=== PATIENT | female | born 1980 | race Caucasian/White ===

== ENCOUNTER 2017-10-27 14:19 | Observation (INO) | payer BC ==
[2017-10-27 14:33] VITALS: RESP 16
[2017-10-27] MEDS ORDERED: ASPIRIN 81 MG PO STA (14:39)
[2017-10-27] MEDS ORDERED: NITROGLYCERIN SL TABS 0.4 MG TAB SUBLINGUAL STA ×3 (14:39)
--- NOTE | 2017-10-27 14:45 | ED ---
General Adult HPI - General Chief complaint: Chest Pain Stated complaint: Chest Pain Time Seen by Provider: 10/27/17 14:31 Source: patient, EMS, RN notes reviewed Mode of arrival: EMS Limitations: no limitations - History of Present Illness Initial comments: Patient is a pleasant 37-year-old female presenting to the emergency Department with complaints of chest discomfort. Onset was around an hour or so ago while doing dishes. Discomfort is tight or pressure. Discomfort is sternal and radiates to both sides as well as the back. Patient does have associated dyspnea. Discomfort does increase with deep breaths and possibly position changes. No nausea or diaphoresis. No history of similar symptoms previously. - Related Data Allergies Allergy/AdvReac Type Severity Reaction Status Date / Time tramadol Allergy Swelling Verified 10/27/17 14:28 Review of Systems ROS Statement: Those systems with pertinent positive or pertinent negative responses have been documented in the HPI. ROS Other: All systems not noted in ROS Statement are negative. Constitutional: Denies: fever Eyes: Denies: eye pain ENT: Denies: ear pain Respiratory: Reports: dyspnea Cardiovascular: Reports: chest pain Endocrine: Denies: fatigue Gastrointestinal: Denies: abdominal pain, nausea Genitourinary: Denies: dysuria Skin: Denies: rash Past Medical History Past Medical History: Thyroid Disorder History of Any Multi-Drug Resistant Organisms: None Reported Past Surgical History: No Surgical Hx Reported Past Psychological History: No Psychological Hx Reported Smoking Status: Never smoker Past Alcohol Use History: None Reported Past Drug Use History: None Reported General Exam Limitations: no limitations General appearance: alert, in no apparent distress Head exam: Present: atraumatic Eye exam: Present: normal appearance, PERRL ENT exam: Present: normal oropharynx Neck exam: Present: normal inspection Respiratory exam: Present: normal lung sounds bilaterally, chest wall tenderness (Mild tenderness to the sternal) Cardiovascular Exam: Present: regular rate, normal rhythm Expanded Peripheral pulses: 2+: Radial (R), Radial (L), Dorsalis Pedis (R), Dorsalis Pedis (L) GI/Abdominal exam: Present: soft. Absent: distended, tenderness Extremities exam: Present: normal inspection. Absent: pedal edema, calf tenderness Back exam: Present: tenderness (Mild diffuse tenderness) Neurological exam: Present: alert Psychiatric exam: Present: normal mood Skin exam: Present: normal color Course Vital Signs 10/27/17 10/27/17 10/27/17 14:24 14:32 14:48 Temperature 98.7 F Pulse Rate 90 80 90 Respiratory 18 16 16 Rate Blood Pressure 199/92 171/89 156/99 O2 Sat by Pulse 98 97 Oximetry 10/27/17 14:55 Temperature Pulse Rate 82 Respiratory 16 Rate Blood Pressure 163/101 O2 Sat by Pulse 98 Oximetry EKG Findings - EKG Comments: EKG Findings:: Normal sinus rhythm 78. ME 172. QRS 86. QT 36. QTc 440. Left axis. LVH criteria. No acute ST change. Medical Decision Making - Medical Decision Making Patient reevaluated and resting comfortably in bed. Symptoms have improved. Patient is unclear if symptoms improved from nitroglycerin or not. Patient is updated on results and plan. Case was discussed in detail with Dr. Glez, covering for Dr. garrett, who will admit for Dr. Ansari. - Lab Data Result diagrams: 10/27/17 14:27 10/27/17 14:27 Lab Results 10/27/17 10/27/17 10/27/17 Range/Units 14:27 14:27 14:27 WBC 10.1 (3.8-10.6) k/uL RBC 4.40 (3.80-5.40) m/uL Hgb 13.2 (11.4-16.0) gm/dL Hct 38.2 (34.0-46.0) % MCV 86.8 (80.0-100.0) fL MCH 29.9 (25.0-35.0) pg MCHC 34.5 (31.0-37.0) g/dL RDW 13.6 (11.5-15.5) % Plt Count 245 (150-450) k/uL Neutrophils % 63 % Lymphocytes % 30 % Monocytes % 4 % Eosinophils % 1 % Basophils % 0 % Neutrophils # 6.3 (1.3-7.7) k/uL Lymphocytes # 3.1 (1.0-4.8) k/uL Monocytes # 0.4 (0-1.0) k/uL Eosinophils # 0.1 (0-0.7) k/uL Basophils # 0.0 (0-0.2) k/uL PT (9.0-12.0) sec INR (<1.2) APTT (22.0-30.0) sec D-Dimer (<0.60) mg/L FEU Sodium 141 (137-145) mmol/L Potassium 3.6 (3.5-5.1) mmol/L Chloride 104 (98-107) mmol/L Carbon Dioxide 22 (22-30) mmol/L Anion Gap 15 mmol/L BUN 11 (7-17) mg/dL Creatinine 0.80 (0.52-1.04) mg/dL Est GFR (CKD-EPI)AfAm >90 (>60 ml/min/1.73 sqM) Est GFR (CKD-EPI)NonAf >90 (>60 ml/min/1.73 sqM) Glucose 109 H (74-99) mg/dL Calcium 9.3 (8.4-10.2) mg/dL Magnesium 1.9 (1.6-2.3) mg/dL Total Bilirubin 0.6 (0.2-1.3) mg/dL AST 51 H (14-36) U/L ALT 42 (9-52) U/L Alkaline Phosphatase 88 (38-126) U/L Total Creatine Kinase 64 (30-135) U/L CK-MB (CK-2) 0.2 (0.0-2.4) ng/mL CK-MB (CK-2) Rel Index 0.3 Troponin I <0.012 (0.000-0.034) ng/mL Total Protein 6.7 (6.3-8.2) g/dL Albumin 3.9 (3.5-5.0) g/dL 10/27/17 Range/Units 14:27 WBC (3.8-10.6) k/uL RBC (3.80-5.40) m/uL Hgb (11.4-16.0) gm/dL Hct (34.0-46.0) % MCV (80.0-100.0) fL MCH (25.0-35.0) pg MCHC (31.0-37.0) g/dL RDW (11.5-15.5) % Plt Count (150-450) k/uL Neutrophils % % Lymphocytes % % Monocytes % % Eosinophils % % Basophils % % Neutrophils # (1.3-7.7) k/uL Lymphocytes # (1.0-4.8) k/uL Monocytes # (0-1.0) k/uL Eosinophils # (0-0.7) k/uL Basophils # (0-0.2) k/uL PT 9.9 (9.0-12.0) sec INR 1.0 (<1.2) APTT 23.3 (22.0-30.0) sec D-Dimer 0.59 (<0.60) mg/L FEU Sodium (137-145) mmol/L Potassium (3.5-5.1) mmol/L Chloride (98-107) mmol/L Carbon Dioxide (22-30) mmol/L Anion Gap mmol/L BUN (7-17) mg/dL Creatinine (0.52-1.04) mg/dL Est GFR (CKD-EPI)AfAm (>60 ml/min/1.73 sqM) Est GFR (CKD-EPI)NonAf (>60 ml/min/1.73 sqM) Glucose (74-99) mg/dL Calcium (8.4-10.2) mg/dL Magnesium (1.6-2.3) mg/dL Total Bilirubin (0.2-1.3) mg/dL AST (14-36) U/L ALT (9-52) U/L Alkaline Phosphatase (38-126) U/L Total Creatine Kinase (30-135) U/L CK-MB (CK-2) (0.0-2.4) ng/mL CK-MB (CK-2) Rel Index Troponin I (0.000-0.034) ng/mL Total Protein (6.3-8.2) g/dL Albumin (3.5-5.0) g/dL - Radiology Data Radiology results: image reviewed (X-ray shows no acute process) Disposition Clinical Impression: Chest pain Disposition: ADMITTED IP TO THIS HOSP Is patient prescribed a controlled substance at d/c from ED?: No Referrals: Brooke Ansari MD [Primary Care Provider] - 1-2 days Decision Time: 15:55
[2017-10-27 15:03] LABS: Basophils % (A) 0 %; Eosinophils # (A) 0.1 k/uL (0-0.7); Eosinophils % (A) 1 %; HCT 38.2 % (34.0-46.0); HGB 13.2 gm/dL (11.4-16.0); Lymphocytes # (A) 3.1 k/uL (1.0-4.8); Lymphocytes % (A) 30 %; MCH 29.9 pg (25.0-35.0); MCHC 34.5 g/dL (31.0-37.0); MCV 86.8 fL (80.0-100.0); Mean Platelet Volume 7.4; Monocytes # (A) 0.4 k/uL (0-1.0); Monocytes % (A) 4 %; Neutrophils # (A) 6.3 k/uL (1.3-7.7); Neutrophils % (A) 63 %; Platelet Count 245 k/uL (150-450); RDW 13.6 % (11.5-15.5); WBC 10.1 k/uL (3.8-10.6)
--- NOTE | 2017-10-27 15:10 | XR ---
EXAMINATION TYPE: XR chest 2V DATE OF EXAM: 10/27/2017 COMPARISON: NONE HISTORY: Substernal chest pain, diaphoresis, shortness of breath and pain with inspiration. TECHNIQUE: Frontal and lateral views of the chest are obtained. FINDINGS: Pulmonary vasculature is accentuated by low lung volumes as is the cardiomediastinal silho uette. There is no focal air space opacity, pleural effusion, or pneumothorax seen. The cardiac silh ouette size is within normal limits. The osseous structures are intact. IMPRESSION: No acute cardiopulmonary process.
[2017-10-27 15:18] LABS: D-Dimer 0.59 mg/L FEU (<0.60); Partial Thromboplastin Time 23.3 sec (22.0-30.0); Prothrombin Time 9.9 sec (9.0-12.0)
[2017-10-27 15:20] LABS: ALT 42 U/L (9-52); AST 51 U/L (14-36); Albumin 3.9 g/dL (3.5-5.0); Alkaline Phosphatase 88 U/L (38-126); Anion Gap 15 mmol/L; Blood Urea Nitrogen 11 mg/dL (7-17); Calcium 9.3 mg/dL (8.4-10.2); Carbon Dioxide 22 mmol/L (22-30); Chloride 104 mmol/L (98-107); Glucose 109 mg/dL (74-99); Magnesium 1.9 mg/dL (1.6-2.3); Potassium 3.6 mmol/L (3.5-5.1); Sodium 141 mmol/L (137-145); Total Bilirubin 0.6 mg/dL (0.2-1.3); Total Protein 6.7 g/dL (6.3-8.2)
[2017-10-27 15:24] LABS: Creatine Kinase 64 U/L (30-135)
[2017-10-27 15:37] LABS: Creatine Kinase MB 0.2 ng/mL (0.0-2.4); Troponin I <0.012 ng/mL (0.000-0.034)
[2017-10-27] MEDS ORDERED: NITROGLYCERIN SL TABS 0.4 MG TAB SUBLINGUAL PRN (15:56)
[2017-10-27 16:51] VITALS: BMI 41.2
[2017-10-27] MEDS ORDERED: ACETAMINOPHEN TAB 325 MG TAB PO PRN (17:27)
[2017-10-27] MEDS: NITROGLYCERIN OINT 1 INCH/GM PACKET TOPICAL SCH ×2 (17:39→20:30)
[2017-10-27] MEDS: CALCIUM CARBONATE 500 MG CHEWABLE PO PRN (18:42)
[2017-10-27] MEDS: IBUPROFEN 800 MG TAB PO SCH ×2 (18:44→23:11)
[2017-10-27] MEDS ORDERED: cloNIDine HCL 0.1 MG TAB PO PRN (19:09)
[2017-10-27 20:28] LABS: Creatine Kinase 57 U/L (30-135)
[2017-10-27 20:41] LABS: Creatine Kinase MB 0.3 ng/mL (0.0-2.4); Troponin I <0.012 ng/mL (0.000-0.034)
--- NOTE | 2017-10-27 21:51 | HP ---
HISTORY AND PHYSICAL HISTORY OF PRESENT ILLNESS: This 37-year-old woman with a past medical history of hypothyroidism, history of plantar fasciitis, was being followed by Dr. Ansari in the outpatient setting, was complaining of chest pain. The chest pain started while the patient was doing dishes. Pain was felt in the anterior part of the chest which was a tightness and radiated to both sides as well as to the back and the patient came to [facility] and admitted for further evaluation and treatment. Initial troponins are negative and the EKG initially showed normal sinus rhythm. No acute abnormalities noted. There was no history of any fever, rigors. No history of headache, loss of consciousness, seizures. PAST MEDICAL HISTORY: Hypothyroidism, plantar fasciitis. MEDICATIONS PRIOR TO ADMISSION: 1. Motrin 800 mg p.o. t.i.d. 2. Vitamin D3 2000 daily. 3. Synthroid 112 mcg p.o. daily. ALLERGIES: TRAMADOL. FAMILY HISTORY: Hypertension, IBS. SOCIAL HISTORY: No history of smoking. No history of alcohol intake. REVIEW OF SYSTEMS: ENT: No diminished hearing, diminished vision. CARDIOVASCULAR: As mentioned earlier. RESPIRATORY: No cough or hemoptysis. GI: No nausea or vomiting. : No dysuria. NERVOUS: No numbness or weakness. ALLERGY/IMMUNOLOGY: No asthma or hay fever. MUSCULOSKELETAL: As mentioned earlier. HEMATOLOGY/ONCOLOGY: No history of anemia. ENDOCRINE: Hypothyroidism. CONSTITUTIONAL: As mentioned earlier. DERMATOLOGY: Negative. RHEUMATOLOGY: Negative. PSYCHIATRY: As mentioned earlier. PHYSICAL EXAMINATION: The patient alert and oriented x3. Pulse 105, blood pressure 196/110, respirations 16, temperature 98 degrees, pulse ox 97% on room air. HEENT: Conjunctivae normal. Oral mucosa moist. NECK: No jugular venous distention. No carotid bruits. No lymph node enlargement. CARDIOVASCULAR: S1, S2 muffled. RESPIRATORY: Breath sounds diminished in the bases. No rhonchi. No crackles. ABDOMEN: Soft, nontender. No mass palpable. LEGS: No edema. No swelling. NERVOUS SYSTEM: Higher functions as mentioned earlier. Moves all 4 limbs. No focal motor or sensory deficits. LYMPHATIC: No lymphadenopathy in neck or axillae. SKIN: No ulcer, rash or bleeding. LABS: At this time show CBC within normal limits and glucose 109 and AST is 51. ASSESSMENT: 1. Chest pain, possible unstable angina. 2. Hypertension. 3. Hypothyroidism. 4. Plantar fasciitis. 5. Obesity with a body mass of 41.2. RECOMMENDATIONS AND DISCUSSION: In this 37-year-old woman who presented with multiple complex medical issues, will monitor the patient closely, continue the current medical management and symptomatic treatment. Otherwise, I would recommend rule out myocardial infarction, possible stress test, Cardiology consultation, Lopressor and clonidine p.r.n. Guarded prognosis because of multiple complex medical issues. Further recommendations to follow. MMODL / IJN: [id number] /
[2017-10-27] MEDS: METOPROLOL TARTRATE 12.5 MG TAB PO SCH (22:15)
[2017-10-27] MEDS: MORPHINE SULFATE 4 MG/ML SYRINGE IVP PRN (22:21)
[2017-10-28 02:49] LABS: Cholesterol 220 mg/dL (<200); HDL Cholesterol 43 mg/dL (40-60); LDL Cholesterol,Calculated 145 mg/dL (0-99); Triglycerides 162 mg/dL (<150)
[2017-10-28 03:07] LABS: Creatine Kinase 46 U/L (30-135)
[2017-10-28 03:19] LABS: Creatine Kinase MB 0.2 ng/mL (0.0-2.4); Troponin I <0.012 ng/mL (0.000-0.034)
[2017-10-28] MEDS: IBUPROFEN 800 MG TAB PO SCH ×2 (05:56→17:49)
[2017-10-28] MEDS ORDERED: LEVOTHYROXINE 112 MCG TAB PO SCH (06:30)
[2017-10-28] MEDS ORDERED: DOBUTamine DRIP for NUC MED 500 MG in DEXTROSE/WATER 1 250ML.BAG IV ONE (08:15)
--- NOTE | 2017-10-28 08:28 | CONS ---
CONSULTATION CHIEF COMPLAINT: Chest pain. 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 The pain radiated to her back. She became somewhat pale and diaphoretic. It was mild to moderate intensity pain and had gradually subsided on its own. She comes to the ER and is admitted to hospital. Her EKG reveals sinus rhythm with nonspecific ST-T wave changes. She has had 3 sets of troponins that are all within normal limits. Her LDL cholesterol is 145. Her D-dimer is 0.59. Hemoglobin is normal at 13.2. PAST MEDICAL HISTORY: Past medical history is significant for hypothyroidism. It is negative for hypertension, diabetes, dyslipidemia/ MEDICATIONS: Synthroid. FAMILY HISTORY: Family history is significant for hypertension. SOCIAL HISTORY: Social history is negative for smoking, EtOH abuse, or drug abuse. REVIEW OF SYSTEMS: HEENT is unremarkable. CARDIAC: As described above. RESPIRATORY: Negative. GI: Negative. GENITOURINARY: Negative. ALLERGY/IMMUNOLOGY: Negative. SKIN: Negative. MUSCULOSKELETAL: Significant for arthritis. PSYCHOSOCIAL: Negative. ENDOCRINE: Negative. HEMATOLOGICAL: Negative. DERM: Negative. CONSTITUTIONAL: Negative. ONCOLOGICAL: Negative. STEAM ROLLER OPERATOR: Negative. Rest of the system review is not relevant. PHYSICAL EXAMINATION: On exam, comfortable at rest. Vital signs are stable. There is no jugular venous distention. Carotid upstroke is normal. There is no bruit. Chest exam reveals good air entry bilaterally. Heart exam reveals first and second heart sounds. No gallop, no murmur, no rub. Abdomen is soft, nontender. Exam of extremities did not reveal any edema. Peripheral pulses are felt. STEAM ROLLER OPERATOR exam did not reveal focal neurological deficits. EKG does not reveal acute ischemic changes. Cardiac enzymes have been negative. ASSESSMENT: 1. Precordial chest pain. 2. Hypothyroidism. 3. Hypertension. PLAN: The patient has plantar fasciitis. I am going to obtain a dobutamine echo on her. If stress test is abnormal, she will undergo cardiac catheterization. If there is a problem on stress test, we will consider further evaluation. The patient is not able to walk on the treadmill because of plantar fasciitis and the patient does not have any significant coronary risk factors. MMODL / IJN: [id number] /
[2017-10-28] MEDS ORDERED: CHOLECALCIFEROL 1,000 UNIT TAB PO SCH (09:00)
[2017-10-28] MEDS ORDERED: ASPIRIN 325 MG TAB PO SCH (09:00)
[2017-10-28] MEDS: CALCIUM CARBONATE 500 MG CHEWABLE PO PRN (10:11)
[2017-10-28] MEDS ORDERED: ONDANSETRON 4 MG/2 ML VIAL IVP PRN (11:31)
--- NOTE | 2017-10-28 11:54 | ECHOF ---
Referral Reason:cp MEASUREMENTS -------- HEIGHT: 165.1 cm WEIGHT: 112.0 kg BP: 141/9 RVIDd: 3.1 cm (< 3.3) IVSd: 1.2 cm (0.6 - 1.1) LVIDd: 4.9 cm (3.9 - 5.3) LVPWd: 1.0 cm (0.6 - 1.1) IVSs: 1.6 cm LVIDs: 3.1 cm LVPWs: 1.7 cm LA Diam: 3.9 cm (2.7 - 3.8) LAESV Index (A-L): 25.90 ml/m Ao Diam: 3.0 cm (2.0 - 3.7) AV Cusp: 1.8 cm (1.5 - 2.6) MV EXCURSION: 17.570 mm (> 18.000) MV EF SLOPE: 88 mm/s (70 - 150) EPSS: 0.5 cm MV E Espinoza: 1.12 m/s MV DecT: 204 ms MV A Espinoza: 0.91 m/s MV E/A Ratio: 1.23 AV maxP.79 mmHg AV meanP.49 mmHg RAP: 5.00 mmHg RVSP: 24.09 mmHg FINDINGS -------- Sinus rhythm. This was a technically good study. The left ventricular size is normal. There is borderline concentric left ventricular hypertrophy. Overall left ventricular systolic function is normal with, an EF between 60 - 65 %. The right ventricle is normal in size. Normal LA size by volume 22+/-6 ml/m2. The right atrium is normal in size. Aortic valve is trileaflet and is mildly thickened. The aortic valve is bicuspid. Mild mitral regurgitation is present. Trace tricuspid regurgitation present. Right ventricular systolic pressure is normal at < 35 mmHg. Trace/mild (physiologic) pulmonic regurgitation. The aortic root size is normal. Normal inferior vena cava with normal inspiratory collapse consistent with estimated right atrial pre ssure of 5 mmHg. There is no pericardial effusion. CONCLUSIONS -------- 1. Sinus rhythm. 2. This was a technically good study. 3. The left ventricular size is normal. 4. There is borderline concentric left ventricular hypertrophy. 5. Overall left ventricular systolic function is normal with, an EF between 60 - 65 %. 6. The right ventricle is normal in size. 7. Normal LA size by volume 22+/-6 ml/m2. 8. The right atrium is normal in size. 9. Aortic valve is trileaflet and is mildly thickened. 10. The aortic valve is bicuspid. 11. Mild mitral regurgitation is present. 12. Trace tricuspid regurgitation present. 13. Right ventricular systolic pressure is normal at < 35 mmHg. 14. Trace/mild (physiologic) pulmonic regurgitation. 15. The aortic root size is normal. 16. Normal inferior vena cava with normal inspiratory collapse consistent with estimated right atrial pressure of 5 mmHg. 17. There is no pericardial effusion. CHEESE BLENDER: Shira Hammer RDCS
[2017-10-28] MEDS: NITROGLYCERIN OINT 1 INCH/GM PACKET TOPICAL SCH ×2 (12:02→17:59)
[2017-10-28] MEDS: METOPROLOL TARTRATE 12.5 MG TAB PO SCH (12:06)
--- NOTE | 2017-10-28 12:49 | ECHOS ---
STRESS ECHOCARDIOGRAM INDICATIONS: Chest pain. MEDICATIONS: Synthroid, Vitamin D, Multivitamin BASELINE HEART RATE: 79 BASELINE BLOOD PRESSURE: 144/82 MAXIMUM HEART RATE: 155 MAXIMUM BLOOD PRESSURE: 217/109 85% MPHR: 155 100% MPHR: 182 MAXIMUM STAGE REACHED: II TOTAL EXERCISE TIME: 7:00 CLINICAL INFORMATION: Chest pain. Baseline EKG shows sinus rhythm, normal axis, normal intervals. The patient was given intravenous dobutamine over a period of 7 minutes as per protocol. Did not have chest pain or diagnostic ST-segment depression, attained 85% of predicted maximal heart rate. Baseline echo shows normal left ventricular size, wall motion and systolic function. There is normal hyperdynamic response of all segments of myocardium noted conclusions. CONCLUSION: 1. Negative stress test by EKG criteria. 2. Negative dobutamine echo. MMODL / IJN: [id number] /
[2017-10-28] MEDS ORDERED: LISINOPRIL 5 MG TAB PO SCH (14:00)
[2017-10-28] MEDS: MORPHINE SULFATE 4 MG/ML SYRINGE IVP PRN (14:27)
[2017-10-28 16:04] VITALS: PULSE 70; TEMP 98.6
[2017-10-28 16:55] VITALS: BP 139/78
--- NOTE | 2017-10-29 00:15 | DS ---
DISCHARGE SUMMARY FINAL DIAGNOSES: 1. Chest pain, myocardial infarction ruled out, negative stress test, possibly musculoskeletal pain. 2. Hypertension. 3. Hypothyroidism. 5. Hyperlipidemia. 6. Obesity with body mass index 41.2. DISCHARGE DISPOSITION: The patient will be discharged in stable condition with guarded prognosis. HISTORY OF PRESENT ILLNESS: This 37-year-old woman with a past medical history of multiple medical problems presented with chest pain. Myocardial infarction was ruled out. Cardiology performed a cardiac dobutamine stress, which is negative. On exam, vitals are stable. CARDIOVASCULAR: S1, S2 muffled. ABDOMEN: Soft. NERVOUS SYSTEM: No focal deficits. The patient will be discharged in stable condition with guarded prognosis after cardiac clearance. The cholesterol is 220 and LDL 145. I recommend repeat testing after dietary manipulation. DISCHARGE INSTRUCTIONS: 1. Discharge diet is cardiac, low fat, low cholesterol. 2. Follow up with Dr. Ansari to 1-2 days. 3. Follow up with Cardiology as advised. 4. Vitamin D3 2000 daily. 5. Motrin 800 mg p.o. t.i.d. 6. Synthroid 112 mcg p.o. daily. 7. Zestril 5 mg p.o. daily. MMODL / IJN: [id number] / MTDD
[2017-10-29] MEDS ORDERED: ASPIRIN 81 MG PO SCH (09:00)
[2017-10-29] MEDS ORDERED: PANTOPRAZOLE 40 MG/10 ML VIAL IVP SCH (09:00)
== END 2017-10-28 18:02 | disposition home or self-care (01) ==
LOC: EC 14:19 → 3OBS 15:56
PROVIDERS: ADMIT Hospitalist; ATTEND Hospitalist
DX: R07.89 Other chest pain (principal); I10 Essential (primary) hypertension; E78.5 Hyperlipidemia, unspecified; E03.9 Hypothyroidism, unspecified; R06.00 Dyspnea, unspecified; R61 Generalized hyperhidrosis; M72.2 Plantar fascial fibromatosis; E66.9 Obesity, unspecified; Z68.41 Body mass index [BMI] 40.0-44.9, adult; Z88.5 Allergy status to narcotic agent; Z79.1 Long term (current) use of non-steroidal anti-inflammatories (NSAID); Z79.890 Hormone replacement therapy; Z82.49 Family history of ischemic heart disease and other diseases of the circulatory system; Z83.79 Family history of other diseases of the digestive system
CPT/HCPCS: 99285 ×2; 96374; 96376; 36415; 93005; 93306; 93351; 85379; 80061; 80053; 82550 ×2; 82553 ×2; 83735; 84484 ×2; 85025; 85610; 85730; 71046; G0378 ×2; J1250; J2270 ×2

== ENCOUNTER 2017-12-24 09:48 | Day surgery (SDC) | payer BC ==
[2017-12-19 14:10] VITALS: BMI 39.9
[~2017-12-24 09:48] MED LIST: DEXAMETHASONE SOD PHOSPHATE 10 MG/ML 1 ML VIAL IV ONE; HEPARIN SODIUM,PORCINE 5,000 UNIT/ML 1 ML VIAL SQ ONE; HYDROmorphone 0.5 MG/0.5 ML SYRINGE IVP PRN; LACTATED RINGERS 1,000 ML IV SCH; SCOPOLAMINE 1.5MG/72HR PATCH TRANSDERM ONE; ceFAZolin IN SWFI 2 GM/20 ML SYRINGE IVP ONE; fentaNYL (PF) 50 MCG/ML 2 ML AMP IV PRN
[2017-12-24 10:25] VITALS: TEMP 97
[2017-12-24] MEDS ORDERED: LIDOCAINE 1% 20 ML VIAL (10MG/ML) FOR IV START INTRADERMA ONE (10:33)
[2017-12-24] MEDS: ONDANSETRON 4 MG/2 ML VIAL IVP ONE ×2 (10:34→13:00)
--- NOTE | 2017-12-24 10:47 | P.GSHP ---
History of Present Illness H&P Date: 12/24/17 Chief Complaint: Right upper quadrant pain This a 29-year-old female who's had complaints of right quadrant pain. Patient recently found have cholelithiasis. She presents today for laparoscopic cholecystectomy. Past Medical History Past Medical History: Cancer, Hyperlipidemia, Hypertension, Thyroid Disorder Additional Past Medical History / Comment(s): HX OF BASAL CELL SKIN CA, LIBORIO FEET plantar fasciitis; steroid injections in feet History of Any Multi-Drug Resistant Organisms: None Reported Past Surgical History: No Surgical Hx Reported Past Anesthesia/Blood Transfusion Reactions: Previous Problems w/ Anesthesia Additional Past Anesthesia/Blood Transfusion Reaction / Comment(s): EPIDURAL WITH CHILDBIRTH CAUSED LOW B/P Smoking Status: Never smoker - Past Family History Daughter(s) Additional Family Medical History / Comment(s): IBS Father Family Medical History: Hypertension Medications and Allergies Home Medications Medication Instructions Recorded Confirmed Type Cholecalciferol [Vitamin D3] 2,000 unit PO DAILY 10/27/17 12/24/17 History Ibuprofen [Motrin] 800 mg PO TID 10/27/17 12/24/17 History Levothyroxine Sodium [Synthroid] 112 mcg PO QAM 10/27/17 12/24/17 History Hydrochlorothiazide 25 mg PO QAM 12/19/17 12/24/17 History Lisinopril [Prinivil] 10 mg PO QAM 12/19/17 12/24/17 History Metoprolol Tartrate [Lopressor] 50 mg PO HS 12/19/17 12/24/17 History Simvastatin [Zocor] 20 mg PO HS 12/19/17 12/24/17 History Allergies Allergy/AdvReac Type Severity Reaction Status Date / Time tramadol Allergy Swelling Verified 12/24/17 10:25 Surgical - Exam Vital Signs Temp Pulse Resp BP 97 F L 91 16 113/72 12/24/17 10:23 12/24/17 10:23 12/24/17 10:23 12/24/17 10:23 - General well developed, no distress - Eyes PERRL - ENT normal pinna, normal nares - Neck no masses - Respiratory normal expansion - Cardiovascular Rhythm: regular - Abdomen Abdomen: soft, non tender Assessment and Plan Assessment: Right upper quadrant pain Cholelithiasis We'll perform laparoscopic cholecystectomy.
[2017-12-24] MEDS ORDERED: HYDROmorphone (PF) 1 MG/ML ONE (11:04)
[2017-12-24] MEDS ORDERED: ROCURONIUM BROMIDE 10 MG/ML 10 ML VIAL IV ONE (11:04)
[2017-12-24] MEDS ORDERED: GLYCOPYRROLATE 0.2 MG/ML 2 ML VIAL ONE (11:04)
[2017-12-24] MEDS ORDERED: PROPOFOL 10 MG/ML 20 ML VIAL IV ONE (11:04)
[2017-12-24] MEDS ORDERED: LIDOCAINE 1% INJ 10MG/ML (20 ML MDV) ONE (11:04)
[2017-12-24] MEDS ORDERED: MIDAZOLAM 2 MG/2 ML VIAL ONE (11:04)
[2017-12-24] MEDS ORDERED: SUCCINYLCHOLINE CHLORIDE 100 MG/5 ML SYR IV ONE (11:04)
[2017-12-24] MEDS ORDERED: fentaNYL (PF) 50 MCG/ML 2 ML AMP ONE (11:04)
[2017-12-24] MEDS ORDERED: NEOSTIGMINE 1 MG/ML 10 ML VIAL ONE (11:04)
[2017-12-24] MEDS ORDERED: LACTATED RINGERS 1,000 ML IV ONE (11:30)
[2017-12-24] MEDS ORDERED: BUPIVACAIN-EPI 0.5%-1:200,000 30 ML VIAL SQ ONE (11:38)
--- NOTE | 2017-12-24 12:07 | P.OP ---
Date of Procedure: 12/24/17 Preoperative Diagnosis: Cholelithiasis Cholecystitis Postoperative Diagnosis: Cholelithiasis Cholecystitis Procedure(s) Performed: Endoscopic cholecystectomy Anesthesia: DEQUAN Surgeon: Jordy Zhang Estimated Blood Loss (ml): 5 Pathology: other (Gallbladder) Condition: stable Disposition: PACU Description of Procedure: The patient was placed on the operating table. The patient received a general endotracheal tube anesthesia. The patients abdomen was prepped and draped in the usual sterile fashion. Through an infraumbilical stab incision, the fascia of the anterior abdominal wall was grasped with a pair of Kochers and then the Veress needle was placed in the peritoneal cavity. Position of the Veress needle was confirmed with positive drop test. The abdomen was then insufflated. After adequate insufflation, the 10 mm trocar was placed in the peritoneal cavity. Following this the laparoscope was placed in the peritoneal cavity. The patient was placed in the head-up, right side up position and then a 5 mm trocar was placed in the right lateral and right subcostal position under direct visualization. A 8 mm trocar was placed in the epigastric position. The gallbladder was grasped in the fundus and infundibulum. Traction on the gallbladder was placed in the lateral and the cephalad positions. The triangle of Calot was visualized.. The cystic duct was bluntly dissected until the union of the cystic duct and common bile duct was seen. The cystic duct was then divided and sealed with the Harmonic scissors. A PDS Endoloop was then placed throughout the cystic duct stump. The cystic artery divided and sealed with the Harmonic scissors. The gallbladder was then removed from the liver bed using Harmonic scissors. The gallbladder was then extracted through the epigastric port site. Operative field was checked for any bleeding spots and Harmonic scissors was used to coagulate the liver bed. The abdomen was irrigated. The trocars were removed. The skin was closed using interrupted 3-0 Vicryl suture. Dermabond dressing were applied. The patient tolerated the procedure well.
[2017-12-24 13:05] VITALS: RESP 16
[2017-12-24] MEDS ORDERED: PROMETHAZINE INJ 25 MG/ML 1 ML VIAL IVPB ONE (14:24)
[2017-12-24] MEDS ORDERED: HYDROcodone/APAP 7.5-325MG 1 EACH TAB PO ONE (15:38)
[2017-12-24 16:08] VITALS: BP 101/68; PULSE 87
== END 2017-12-24 16:47 | disposition home or self-care (01) ==
LOC: OR 09:48
PROVIDERS: ATTEND Surgery
DX: K80.10 Calculus of gallbladder with chronic cholecystitis without obstruction (principal); E78.5 Hyperlipidemia, unspecified; I10 Essential (primary) hypertension; E07.9 Disorder of thyroid, unspecified; Z88.5 Allergy status to narcotic agent; Z79.1 Long term (current) use of non-steroidal anti-inflammatories (NSAID); Z79.890 Hormone replacement therapy; Z79.899 Other long term (current) drug therapy; Z85.828 Personal history of other malignant neoplasm of skin; Z82.49 Family history of ischemic heart disease and other diseases of the circulatory system
CPT/HCPCS: 47562; 81025; 88304; J2250; J1644; J1100; J2550; J2710; J2405; J2001; J3010; J1170; J0330; J2704; J0690